=== PATIENT | male | born 1995 | race Caucasian/White ===

== ENCOUNTER 2016-10-18 14:12 | Outpatient (CLI) | payer OTHER ==
[~2016-10-18 14:12] MED LIST: COLACE EQUIVALENT PO; ONDANSETRON4 MG/2 ML IV; PERCOCET1 TA1 PO; WHEELCHAIR; [UNRECOGNIZED DRUG - OTHER] PO
--- NOTE | 2016-10-18 16:32 | DIAGNOSTIC IMAGING REPORT ---
PROCEDURE: MR UPPER EXTREMITY W/O CONT-LT INDICATION: LT SHOULDER DISLOCATION TECHNIQUE: PD and PD fat sat axial, T1 and PD fat sat coronal, PD and STIR sagittal sequences through the shoulder. COMPARISON: Plain films 08/21/2014 FINDINGS: Rotator cuff: Mild intrinsic intermediate signal involving the critical zone fibers and slight bursal surface edema. Intact subscapularis tendon. Biceps tendon: The long head of the biceps tendon is normal in thickness, position, and signal. The visible interval structures are intact. Osseous structures and articular surfaces: 12 x 5 mm osseous fragment minimally displaced from the anterior inferior glenoid suggestive of a bony Bankart lesion. No evidence of acute or chronic Hill-Sachs impaction deformity. Type 2 acromion with conventional anatomy. The humeral head is situated normal in the glenoid fossa. There is questionable hypoplasia of the superior aspect of the glenoid. Labral ligamentous complex: In the absence of intra-articular contrast labrum is suboptimally evaluated. The superior labrum appears hypoplastic. The anterior labrum is also diminutive. Small incomplete tear versus sulcus in the posterior labrum. The supporting ligaments of the humeral head appear intact without suspicious signal. Fluid, soft tissues, and joint space: There is a trace amount of glenohumeral joint fluid. No suspicious capsular hypertrophy or debris. No fluid in the biceps tendon sheath. Small amount of subacromial subdeltoid edema without bursal fluid collection. Tiny, questionable anterior superior paralabral cyst (series 103 image 8). The muscles are normal in bulk and signal. Neurovascular bundle appears normal. IMPRESSION: 1. 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 CT may be helpful to confirm a displaced fragment and to assess bony glenoid morphology. 2. Questionably hypoplastic superior glenoid and labrum with possible tiny anterior superior paralabral cyst. 3. No evidence of acute ligament strain. 4. Mild rotator cuff tendinopathy and slight reactive bursitis.
== END 2016-10-18 23:00 ==
LOC: MRI SRH 14:12
DX: M75.52 Bursitis of left shoulder (principal); M75.82 Other shoulder lesions, left shoulder